=== PATIENT | female | born 1935 | race Caucasian/White ===

== ENCOUNTER 2020-12-28 07:23 | Inpatient (IN) ==
[2020-12-28 04:58] LABS: Alanine Aminotransferase 19 Units/L (7-52); Albumin 3.7 g/dL (3.5-5.7); Albumin/Globulin Ratio 1.7 (1.1-2.2); Alkaline Phosphatase 63 Units/L (34-104); Aspartate Amino Transferase 20 Units/L (13-39); BUN/Creatinine Ratio 15 (6-26); Bilirubin,Total 1.4 mg/dL (0.3-1.0); Blood Urea Nitrogen 16 mg/dL (8-23); Calcium 9.3 mg/dL (8.6-10.3); Carbon Dioxide 25 mEq/L (23-29); Chloride 104 mEq/L (98-107); Chol/HDL Ratio 3.9 (0-4.9); Cholesterol 172 mg/dL (< 200); Globulin 2.2 g/dL (2.4-3.5); Glucose 113 mg/dL (70-105); HDL Cholesterol 44 mg/dL (40-59); LDL Cholesterol,Calculated 105 mg/dL (< 100); Osmolality,Calculated 284 (280-300); Potassium 4.3 mEq/L (3.5-5.1); Sodium 136 mEq/L (136-145); Total Protein 5.9 g/dL (6.4-8.9); Triglycerides 114 mg/dL (< 150); Troponin I < 0.03 ng/mL (< 0.04); eGFR For African Americans 57 (> 60); eGFR For Non-African Americans 47 (> 60)
[2020-12-28 05:09] LABS: INR 1.1; Prothrombin Time 12.7 Seconds (9.4-12.1)
[2020-12-28 05:10] LABS: Activated Partial Thrombo Time 16.6 Seconds (26.0-36.0)
[~2020-12-28 07:23] MED LIST: Perflutren Lipid Microsphere 1.3 ML in 0.9 % Sodium Chloride 8.7 ML IVP PRN
[2020-12-28 10:02] LABS: Estimated Average Glucose 134 mg/dl; Hemoglobin A1C 6.3 %
[2020-12-29] MEDS: Levothyroxine 25 MCG TABLET PO SCH (06:09)
[2020-12-29] MEDS: Cholecalciferol (D-3) 1,000 UNIT (25MCG) TABLET PO SCH (08:14)
[2020-12-29] MEDS: Aspirin 325 MG TABLET PO SCH (08:14)
[2020-12-29] MEDS: Verapamil ER (24 HR) 180 MG TABLET.ER PO SCH (08:15)
[2020-12-29 09:00] LABS: Basophils # 0.1 K/mcL (0.0-0.2); Basophils % 1.1 %; Eosinophils # 0.3 K/mcL (0.0-0.6); Eosinophils % 5.8 %; Hemoglobin 13.7 g/dL (11.5-15.4); Immature Granulocytes % 0.2 % (0-4); Lymphocytes # 1.9 K/mcL (0.6-4.6); Lymphocytes % 34.8 %; Mean Corpuscular HGB Conc 32.6 g/dL (31.6-35.5); Mean Corpuscular Hemoglobin 31.7 pg (28.0-33.3); Mean Corpuscular Volume 97.2 fL (83.0-100.0); Mean Platelet Volume 11.3 fL (9.4-12.4); Monocytes # 0.5 K/mcL (0.0-1.3); Neutrophils # 2.6 K/mcL (1.6-8.9); Platelet Count 183 K/mcL (140-400); Red Blood Count 4.32 M/mcL (3.82-4.97); Red Cell Distribution Width 12.9 % (11.5-14.5); Segmented Neutrophils % 49.1 %; White Blood Count 5.3 K/mcL (4.3-11.1)
[2020-12-29] MEDS ORDERED: CALCIUM CARB GLUC PO SCH (09:00)
[2020-12-29] MEDS ORDERED: MAG OX GLUC PO SCH (09:00)
[2020-12-29] MEDS ORDERED: Ondansetron 4 MG/2 ML VIAL IVP PRN (10:48)
[2020-12-29] MEDS ORDERED: Prochlorperazine 10 MG/2 ML VIAL IVP ONE (11:41)
[2020-12-30 04:05] LABS: Basophils # 0.1 K/mcL (0.0-0.2); Basophils % 0.6 %; Eosinophils # 0.1 K/mcL (0.0-0.6); Eosinophils % 0.9 %; Hematocrit 35.9 % (35.3-44.9); Immature Granulocytes % 0.2 % (0-4); Lymphocytes % 24.5 %; Mean Corpuscular HGB Conc 32.9 g/dL (31.6-35.5); Mean Corpuscular Hemoglobin 31.8 pg (28.0-33.3); Mean Corpuscular Volume 96.8 fL (83.0-100.0); Mean Platelet Volume 11.2 fL (9.4-12.4); Monocytes # 0.8 K/mcL (0.0-1.3); Monocytes % 9.6 %; Platelet Count 160 K/mcL (140-400); Red Blood Count 3.71 M/mcL (3.82-4.97); Segmented Neutrophils % 64.2 %
[2020-12-30 04:06] LABS: Hemoglobin 11.8 g/dL (11.5-15.4); Neutrophils # 5.1 K/mcL (1.6-8.9)
[2020-12-30 04:18] LABS: Calcium 8.6 mg/dL (8.6-10.3); Potassium 3.3 mEq/L (3.5-5.1)
[2020-12-30] MEDS: Levothyroxine 25 MCG TABLET PO SCH (05:58)
[2020-12-30] MEDS ORDERED: *HR* Heparin 5,000 UNIT/ML VIAL SQ SCH (06:00)
[2020-12-30 07:22] VITALS: BP 139/62
[2020-12-30] MEDS: Aspirin 325 MG TABLET PO SCH (08:07)
[2020-12-30] MEDS: Verapamil ER (24 HR) 180 MG TABLET.ER PO SCH (08:07)
[2020-12-30] MEDS: Cholecalciferol (D-3) 1,000 UNIT (25MCG) TABLET PO SCH (08:07)
[2020-12-30] MEDS ORDERED: 0.9 % Sodium Chloride 500 ML IVC ONE (08:21)
[2020-12-30] MEDS ORDERED: Acetaminophen 325 MG TABLET PO PRN (09:32)
[2020-12-30] MEDS ORDERED: 0.9 % Sodium Chloride 500 ML IVC SCH (12:30)
== END 2020-12-30 15:25 | disposition home or self-care (01) | DRG 65 ==
LOC: 3ANU → SUATTDRO 17:23
PROVIDERS: ADMIT Internal Medicine; ATTEND Internal Medicine